=== PATIENT | female | born 1990 | race Caucasian/White ===

== ENCOUNTER 2019-11-03 09:35 | Emergency (ER) | payer OTHER, BC ==
[~2019-11-03] VITALS: Ht 167.6 cm; Wt 59.7 kg
[2019-11-03] MEDS ORDERED: BUPROPION XL150 M1 PO (11:42)
== END 2019-11-03 12:11 | disposition home or self-care (01) ==
LOC: ER 09:35
DX: L23.7 Allergic contact dermatitis due to plants, except food (principal); Z88.8 Allergy status to other drugs, medicaments and biological substances
CPT/HCPCS: 96372-59; 99282-25; J0702; J3301